=== PATIENT | female | born 1975 | race Caucasian/White ===

== ENCOUNTER 2017-11-03 21:47 | Emergency (ER) | payer BC ==
--- NOTE | 2017-11-03 22:09 | PDOC ---
Attending Attestation - Physicial Exam PE: 11/04/17 00:46 GENERAL: Well-appearing, well-nourished. No apparent distress. HEENT: Normocephalic, atraumatic. PERRL, EOM intact. CARDIOVASCULAR: Normal S1, S2. Regular rate and rhythm. PULMONARY: Clear to auscultation bilaterally. ABDOMEN: Soft, non-distended, non-tender. EXTREMITIES: Normal ROM in all four extremities. No gross deformities. SKIN: Warm, dry. No rash NEUROLOGICAL: No focal neurological deficits. <Ishmael Hobson - Last Filed: 11/04/17 00:46> - Resident Resident Name: Christina Sanches - ED Attending Attestation I have performed the following: I have examined & evaluated the patient, The case was reviewed & discussed with the resident, I agree w/resident's findings & plan, Exceptions are as noted - HPI HPI: 11/03/17 22:08 42 yo female p/w nausea and vomiting. Pt is IDDM and has a h/o gastroparesis - Physicial Exam PE: 11/03/17 23:47 42 yo female p/w nausea and vomiting for 4 days head ncat neck supple lungs cta b/l cvs [id number] abd no rebound, no guarding ext from skin no vesicles,no cellulitis neuro axox3,ambulatory psych appropriate - Medical Decision Making 11/03/17 23:54 diff diag includes gastroparesis,gastritis,dka 11/04/17 01:01 NEGATIVE ACETONE. [id number] plan pt will receive IVF then d/c home <Genoveva Healy - Last Filed: 11/04/17 01:02>
[2017-11-03] MEDS ORDERED: METOCLOPRAMIDE HCL INJECTION 10 MG/2 ML VIAL IVPUSH ONE (22:13)
[2017-11-03] MEDS ORDERED: SODIUM CHLORIDE 0.9% 500 ML INFUS.BAG IV ONE (22:13)
--- NOTE | 2017-11-03 22:23 | PDOC ---
History of Present Illness - General Chief Complaint: Blood Pressure Problem Stated Complaint: Low BP Time Seen by Provider: 11/03/17 22:02 History Source: Patient, EMS Exam Limitations: No Limitations - History of Present Illness Initial Comments: This is a 42 YOF with h/o IDDM, gastroparesis (last episode July 2017), and HTN who was BIBA from [facility] where she was being seen for nausea, NBNB vomiting, and worsening lightheadedness for the past 3 days and was found to be hypotensive to the 70s systolic. EMS reports that the patient's blood pressure was in the 80s systolic on their arrival at [facility], and they were able to increase this to the upper 90s systolic after 500 cc IVF. They additionally gave her Zofran en route. The patient explains that her father on 10/19/17 and she is visiting from [place] for his , which was today. This has culminated in a great deal of stress and she has been vomiting and dry heaving constantly for the past 3 days, unable to keep down solids, liquids, or any of her normal medications. Her home BG measurements have been in the 200s and 300s despite her normal insulin injections. She endorses chills and a short-lived left sided headache behind her eye, but denies any fever, diarrhea, constipation, abdominal pain, chest pain, SOB, or other symptoms. This feels the same as her prior episodes of gastroparesis. EMS states that the patient's BG was in the 100s systolic. Past History - Past Medical History Allergies/Adverse Reactions: Allergies Allergy/AdvReac Type Severity Reaction Status Date / Time No Known Allergies Allergy Verified 11/03/17 22:21 Home Medications: Ambulatory Orders Alprazolam 0.25 mg PO DAILY 11/03/17 Amlodipine Besylate 10 mg PO DAILY 11/03/17 Aspirin [ASA -] 81 mg PO DAILY 11/03/17 Atorvastatin Ca [Lipitor] 40 mg PO HS 11/03/17 Ciprofloxacin HCl [Cipro] 500 mg PO BID 11/03/17 Hydrochlorothiazide [Hctz -] 12.5 mg PO DAILY 11/03/17 Insulin Detemir [Levemir Flextouch] 24 unit SQ BID 11/03/17 Insulin Regular [NOVOLIN R VIAL *IVPUSH / ER / ICU Only*] 10 units SQ BIDAC Lisinopril [Prinivil -] 40 mg PO DAILY 11/03/17 Metformin HCl [Glucophage] 1,000 mg PO BID 11/03/17 Metoprolol Tartrate 50 mg PO BID 11/03/17 Ondansetron HCl [Zofran] 8 mg PO PRN PRN 11/03/17 Pantoprazole Sodium 40 mg PO DAILY 11/03/17 Review of Systems - Review of Systems Able to Perform ROS?: Yes Constitutional: Yes: Chills, Loss of Appetite, Malaise. No: Fever, Unexplained wgt Loss HEENTM: No: Nose Congestion, Throat Pain Respiratory: No: Cough, Shortness of Breath Cardiac (ROS): Yes: Lightheadedness. No: Chest Pain, Palpitations ABD/GI: Yes: Nausea, Vomiting. No: Constipated, Diarrhea : No: Burning, Dysuria Musculoskeletal: No: Back Pain, Neck Pain Integumentary: No: Bruising, Rash Neurological: Yes: Headache. No: Numbness, Tingling, Weakness Endocrine: No: Unexplained Weight Gain, Unexplained Weight Loss *Physical Exam - Physical Exam General Appearance: Yes: Nourished, Appropriately Dressed, Mild Distress, Obese , Other (a bit pale and dehydrated appearing adult female, intermittently dry heaving, answering questions appropriately) HEENT: positive: EOMI, Normal Voice, Hearing Grossly Normal, Other (dry mucous membranes). negative: Scleral Icterus (R), Scleral Icterus (L), Nasal Congestion Neck: positive: Trachea midline, Supple. negative: Tender, Rigid Respiratory/Chest: positive: Lungs Clear, Normal Breath Sounds. negative: Respiratory Distress, Crackles, Rhonchi, Stridor, Wheezing Cardiovascular: positive: Regular Rhythm, Regular Rate, S1, S2. negative: Edema , JVD, Murmur Gastrointestinal/Abdominal: positive: Normal Bowel Sounds, Soft. negative: Tender, Organomegaly, Pulsatile Mass, Guarding Musculoskeletal: positive: Normal Inspection. negative: Decreased Range of Motion, Vertebral Tenderness Extremity: positive: Normal Capillary Refill, Normal Inspection, Normal Range of Motion. negative: Tender, Cyanosis Integumentary: positive: Normal Color, Dry, Warm. negative: Erythema, Rash, Bruising Neurologic: positive: door repairman II-XII NML intact (grossly), Fully Oriented, Alert, Normal Mood/Affect, Normal Response, Motor Strength 5/5. negative: Confused, Disoriented Heart Score/ECG Review #1 NSR rate 83 with normal axis, prolonged LCw=956, no ischemic changes ED Treatment Course - LABORATORY CBC & Chemistry Diagram: 11/03/17 22:41 Medical Decision Making - Medical Decision Making Pt with IDDM gasatroparesis and HTN p/w nausea, vomiting, lightheadedness, inability to tolerate meds, hypotension. Vital Signs Temperature 98.7 F 11/03/17 21:55 Pulse Rate 88 11/03/17 21:55 Respiratory Rate 19 11/03/17 21:55 Blood Pressure 126/72 11/03/17 21:55 O2 Sat by Pulse Oximetry (%) 100 11/03/17 21:55 Exam: appears uncomfortable, intermittently actively vomiting (NBNB), otherwise normal exam DDX IBNLT: Gastroparesis, DKA, HHS, infection/inflammation/sepsis (i.e. UTI/ pyelonephritis, PNA, bronchitis, skin infection, pancreatitis, cholecystitis, etc), SBO, ACS, etc. W/U ordered: CBCD CMP Mg Serum Acetone Trop VBG EKG UA UCx hCG Initial TX ordered: IVF Benadryl, will possibly give Reglan after EKG clearance for QTc. EKG: As noted in ECG Review section. Notably QTc is 498ms; Reglan is not given. Laboratory Tests 11/03/17 11/03/17 11/03/17 10:42 10:42 10:42 Sodium Potassium Chloride Carbon Dioxide Anion Gap BUN Creatinine Creat Clearance w eGFR Random Glucose Calcium Magnesium Total Bilirubin AST ALT Alkaline Phosphatase Troponin I < 0.02 Total Protein Albumin Lipase 162 Acetone, Qual Negative L 11/03/17 22:41 Sodium 133 L Potassium 3.5 Chloride 97 L Carbon Dioxide 25 Anion Gap 11 BUN 33 H Creatinine 2.4 H Creat Clearance w eGFR 21.93 Random Glucose 169 H Calcium 8.7 Magnesium 1.6 L Total Bilirubin 0.8 AST 19 ALT 29 Alkaline Phosphatase 80 Troponin I Total Protein 7.5 Albumin 3.9 Lipase Acetone, Qual Patient with elevated Cr. No known h/o CKD. Likely will need admission as opposed to outpatient management. [employer] microblogged with notification of possible ED obs patient. Patient's care endorsed to Dr. Cabello at the end of my shift. *DC/Admit/Observation/Transfer Diagnosis at time of Disposition: Insulin dependent diabetes mellitus, Dehydration Vomiting Qualifiers: Vomiting type: unspecified Vomiting Intractability: non-intractable Nausea presence: with nausea Qualified Code(s): R11.2 - Nausea with vomiting, unspecified Hypotension Qualifiers: Hypotension type: unspecified hypotension type Qualified Code(s): I95.9 - Hypotension, unspecified - Referrals - Patient Instructions Printed Discharge Instructions: DI for Gastroparesis Additional Instructions: You were seen in the ER for vomiting related to your gastroparesis, which caused dehydration over the past few days. We gave you medications in the ER which helped your symptoms. After our assessment, we do not believe you are having a medical emergency at this time, and we believe you are safe to go home. Please take your diabetes medication as prescribed and check your blood sugars at home because poor control of diabetes worsens gastroparesis. Please eat 4-5 small meals throughout the day that are low in fat and contain only soluble types of fiber. If you cannot tolerate solid food, try smoothies and other blended/liquid foods. Avoid carbonated beverages, alcohol, and smoking. Take a multi-vitamin and stay very well-hydrated. Please follow up with your regular PCP doctor in 1-3 days. Call their clinic as soon as possible, tell them you were seen in the ER, and tell them you need an appointment. If you have any new or worsening symptoms, especially vomiting blood, rectal bleeding, severe abdominal pain, or other symptoms, please come back to the ER at any time (24 hours a day). If you are having severe or life threatening symptoms, or symptoms that make it unsafe to drive or have someone drive you, please call 911. - Post Discharge Activity
[2017-11-03 22:49] VITALS: BMI 28.8
[2017-11-03 23:46] LABS: ALBUMIN 3.9 g/dl (3.4-5.0); ALK PHOS 80 U/L (45-117); ANION GAP 11 (8-16); BILIRUBIN,TOTAL 0.8 mg/dL (0.2-1.0); BLOOD UREA NITROGEN 33 mg/dL (7-18); CALCIUM 8.7 mg/dL (8.5-10.1); CHLORIDE 97 mmol/L (98-107); CO2 25 mmol/L (21-32); CREATININE 2.4 mg/dL (0.55-1.02); GLUCOSE,RANDOM 169 mg/dL (74-106); MAGNESIUM 1.6 mg/dL (1.8-2.4); POTASSIUM 3.5 mmol/L (3.5-5.1); SGOT/AST 19 U/L (15-37); SGPT/ALT 29 U/L (12-78); SODIUM 133 mmol/L (136-145); TOT PROT 7.5 g/dl (6.4-8.2)
--- NOTE | 2017-11-04 00:09 | PDOC ---
*Physical Exam - Vital Signs Last Vital Signs Temp Pulse Resp BP Pulse Ox 98.7 F 88 19 126/72 100 11/03/17 21:55 11/03/17 21:55 11/03/17 21:55 11/03/17 21:55 11/03/17 21:55 ED Treatment Course - LABORATORY CBC & Chemistry Diagram: 11/04/17 00:00 11/04/17 03:24 - ADDITIONAL ORDERS Additional order review: Laboratory Results 11/03/17 11/03/17 11/03/17 22:41 10:42 10:42 Sodium 133 L Potassium 3.5 Chloride 97 L Carbon Dioxide 25 Anion Gap 11 BUN 33 H Creatinine 2.4 H Creat Clearance w eGFR 21.93 Random Glucose 169 H Calcium 8.7 Magnesium 1.6 L Total Bilirubin 0.8 AST 19 ALT 29 Alkaline Phosphatase 80 Troponin I < 0.02 Total Protein 7.5 Albumin 3.9 Lipase Acetone, Qual Negative L 11/03/17 10:42 Sodium Potassium Chloride Carbon Dioxide Anion Gap BUN Creatinine Creat Clearance w eGFR Random Glucose Calcium Magnesium Total Bilirubin AST ALT Alkaline Phosphatase Troponin I Total Protein Albumin Lipase 162 Acetone, Qual - Medications Given in the ED: ED Medications Discontinued Medications Generic Name Dose Route Start Last Admin Trade Name Freq PRN Reason Stop Dose Admin Diphenhydramine HCl 25 mg 11/03/17 22:13 11/03/17 23:00 Benadryl Injection - IVPUSH 11/03/17 22:14 25 mg ONCE ONE Administration Metoclopramide HCl 10 mg 11/03/17 22:13 11/03/17 23:47 Reglan Injection - IVPUSH 11/03/17 22:14 Not Given ONCE ONE Sodium Chloride 1,500 ml 11/03/17 22:13 11/03/17 23:00 Normal Saline - IV 11/03/17 22:14 1,500 ml ONCE ONE Administration Medical Decision Making - Medical Decision Making 11/04/17 00:[address] Cruz. 11/04/17 03:21 Ms. Gooden is a 42 yo female who presented for hypotension and was found to have elevated creatinine as below. Patient hydrated with improvement of kidney function. Patient will follow-up with primary care provider for further evaluation. Discharging to home. *DC/Admit/Observation/Transfer Diagnosis at time of Disposition: Insulin dependent diabetes mellitus, Dehydration Vomiting Qualifiers: Vomiting type: unspecified Vomiting Intractability: non-intractable Nausea presence: with nausea Qualified Code(s): R11.2 - Nausea with vomiting, unspecified Hypotension Qualifiers: Hypotension type: unspecified hypotension type Qualified Code(s): I95.9 - Hypotension, unspecified - Discharge Dispostion Disposition: HOME - Referrals - Patient Instructions Printed Discharge Instructions: DI for Gastroparesis Additional Instructions: You were seen in the ER for vomiting related to your gastroparesis, which caused dehydration over the past few days. We gave you medications in the ER which helped your symptoms. After our assessment, we do not believe you are having a medical emergency at this time, and we believe you are safe to go home. Please take your diabetes medication as prescribed and check your blood sugars at home because poor control of diabetes worsens gastroparesis. Please eat 4-5 small meals throughout the day that are low in fat and contain only soluble types of fiber. If you cannot tolerate solid food, try smoothies and other blended/liquid foods. Avoid carbonated beverages, alcohol, and smoking. Take a multi-vitamin and stay very well-hydrated. Please follow up with your regular PCP doctor in 1-3 days. Call their clinic as soon as possible, tell them you were seen in the ER, and tell them you need an appointment. If you have any new or worsening symptoms, especially vomiting blood, rectal bleeding, severe abdominal pain, or other symptoms, please come back to the ER at any time (24 hours a day). If you are having severe or life threatening symptoms, or symptoms that make it unsafe to drive or have someone drive you, please call 911. - Post Discharge Activity
[2017-11-04 00:25] LABS: BASO % 0.3 % (0-2.0); EOS % 0.1 % (0-4.5); HEMATOCRIT 37.4 % (32.4-45.2); HEMOGLOBIN 12.2 GM/dL (10.7-15.3); LYMPH % 18.7 % (8-40); MCH 26.5 pg (25.7-33.7); MCHC 32.6 g/dl (32.0-36.0); MEAN CELL VOLUME 81.2 fl (80-96); MEAN PLT VOLUME 9.1 fl (7.5-11.1); MONO % 5.4 % (3.8-10.2); NEUT % 75.5 % (42.8-82.8); PLATELET COUNT 248 K/MM3 (134-434); RDW 13.8 % (11.6-15.6); WHITE BLOOD COUNT 12.1 K/mm3 (4.0-10.0)
[2017-11-04 01:11] VITALS: PULSE 89
[2017-11-04 02:09] LABS: VENOUS PC02 50.7 mmHg (38-52); VENOUS PH 7.32 (7.32-7.42); VENOUS PO2 32.1 mmHg (28-48)
[2017-11-04 04:13] LABS: ALBUMIN 3.5 g/dl (3.4-5.0); ALK PHOS 72 U/L (45-117); ANION GAP 10 (8-16); BILIRUBIN,TOTAL 0.7 mg/dL (0.2-1.0); BLOOD UREA NITROGEN 33 mg/dL (7-18); CALCIUM 7.7 mg/dL (8.5-10.1); CHLORIDE 102 mmol/L (98-107); CO2 25 mmol/L (21-32); CREATININE 2.1 mg/dL (0.55-1.02); GLUCOSE,RANDOM 120 mg/dL (74-106); POTASSIUM 3.6 mmol/L (3.5-5.1); SGOT/AST 16 U/L (15-37); SGPT/ALT 27 U/L (12-78); SODIUM 137 mmol/L (136-145); TOT PROT 6.8 g/dl (6.4-8.2)
[2017-11-04 05:25] VITALS: BP 110/78; TEMP 98
[2017-11-04 07:38] LABS: HCG,QUALITATIVE URINE NEGATIVE
[2017-11-04 07:41] LABS: URINE APPEARANCE CLOUDY; URINE BILIRUBIN NEGATIVE (<2.0 mg/dL); URINE COLOR AMBER; URINE GLUCOSE (UA) 1+ (NEGATIVE); URINE KETONE NEGATIVE (NEGATIVE); URINE LEUK ESTERASE TRACE (NEGATIVE); URINE NITRITE NEGATIVE (NEGATIVE); URINE UROBILINOGEN 4.0 E.U/dl mg/dL (0.2-1.0)
[2017-11-04 07:56] LABS: URINE PROTEIN 2+ (NEGATIVE)
[2017-11-04 07:58] LABS: EPI CELLS RARE /HPF (FEW); URINE HYALINE CAST 175 /lpf; URINE MUCUS MANY
--- NOTE | 2017-11-05 13:04 | EKG ---
Test Reason : Blood Pressure : / mmHG Vent. Rate : 083 BPM Atrial Rate : 083 BPM P-R Int : 140 ms QRS Dur : 080 ms QT Int : 424 ms P-R-T Axes : 074 014 034 degrees QTc Int : 498 ms NORMAL SINUS RHYTHM PROLONGED QT ABNORMAL ECG NO PREVIOUS ECGS AVAILABLE Confirmed by ZINA YOST MD ([id number]) on 11/05/2017 1:04:20 PM Referred By: Confirmed By:ZINA YOST MD
== END 2017-11-04 05:26 | disposition home or self-care (01) ==
LOC: JER 21:47
PROC: 3E033GC Introduction of Other Therapeutic Substance into Peripheral Vein, Percutaneous Approach (ICD-10-PCS; principal; 2017-11-03)
DX: E86.0 Dehydration (principal); E10.43 Type 1 diabetes mellitus with diabetic autonomic (poly)neuropathy; K31.84 Gastroparesis; Z79.4 Long term (current) use of insulin
CPT/HCPCS: 36415; 80053; 81003; 81015; 82009; 82803; 83690; 83735; 84484; 84703; 85025; 87086; 93005; 93010; 99282-25